=== PATIENT | male | born 1960 | race Caucasian/White ===

== ENCOUNTER 2019-08-02 12:50 | Inpatient (IN) ==
[2019-08-02] MEDS ORDERED: 0.9 % Sodium Chloride 1,000 ML ONE (13:24)
[2019-08-02] MEDS: 0.9 % Sodium Chloride 1,000 ML IVC ONE ×2 (13:38→14:03)
[2019-08-02] MEDS ORDERED: DilTIAZem 50 MG in 0.9 % Sodium Chloride 40 ML IVC SCH (13:45)
[2019-08-02] MEDS ORDERED: 0.9 % Sodium Chloride 1,000 ML IVC ONE ×2 (14:00→14:57)
[2019-08-02 14:18] LABS: INR 1.2; Prothrombin Time 13.1 Seconds (9.4-12.1)
[2019-08-02 14:21] LABS: Basophils # 0.1 K/mcL (0.0-0.2); Basophils % 0.2 %; Eosinophils % 0.1 %; Hemoglobin 16.5 g/dL (12.9-16.9); Lymphocytes # 0.8 K/mcL (0.6-4.6); Lymphocytes % 4.2 %; Mean Corpuscular HGB Conc 35.1 g/dL (31.6-35.5); Mean Corpuscular Hemoglobin 31.7 pg (28.0-33.3); Mean Corpuscular Volume 90.2 fL (83.0-100.0); Mean Platelet Volume 9.9 fL (9.4-12.4); Monocytes # 2.4 K/mcL (0.0-1.3); Monocytes % 11.8 %; Neutrophils # 16.6 K/mcL (1.6-8.9); Platelet Count 322 K/mcL (140-400); Red Blood Count 5.21 M/mcL (4.19-5.50); Segmented Neutrophils % 82.7 %; White Blood Count 20.1 K/mcL (4.3-11.1)
[2019-08-02 14:24] LABS: Bilirubin,Urine Negative (Negative); Blood,Urine Moderate (Negative); Clarity,Urine Cloudy (Clear); Color,Urine Yellow (Yellow); Glucose,Urine (UA) Normal (Normal); Ketones,Urine Negative (Negative); Leukocyte Esterase,Urine Small (Negative); Nitrite,Urine Negative (Negative); Protein,Urine 100 mg/dL (Neg-Trace); Specific Gravity,Urine 1.023 (1.010-1.025); Urobilinogen,Urine Normal (Normal)
[2019-08-02 14:26] LABS: Bacteria,Urine Few per hpf (None-Few); RBC,Urine 0-3 per hpf (0-3); Squamous Epithelial Cell,Urine Many per lpf (None-Few); WBC,Urine 15-30 per hpf (0-3)
[2019-08-02 14:34] LABS: BUN/Creatinine Ratio 15 (6-26); Blood Urea Nitrogen 19 mg/dL (6-20); Carbon Dioxide 18 mEq/L (23-29); Chloride 104 mEq/L (98-107); Glucose 121 mg/dL (70-105); Osmolality,Calculated 278 (280-300); Potassium 3.6 mEq/L (3.5-5.1); Sodium 132 mEq/L (136-145); eGFR For African Americans > 60 (> 60); eGFR For Non-African Americans 59 (> 60)
[2019-08-02 14:35] LABS: Troponin I < 0.03 ng/mL (< 0.04)
[2019-08-02 14:38] LABS: Hyaline Casts,Urine None Seen per lpf (None-Few)
[2019-08-02] MEDS ORDERED: cefTRIAXone 1,000 MG in Water for inj. (sterile) 10 ML IVP ONE (14:40)
[2019-08-02] MEDS ORDERED: *HR* FentaNYL (PF) 100 MCG/2 ML VIAL IVP ONE (14:40)
[2019-08-02] MEDS ORDERED: Azithromycin 500 MG in 0.9 % Sodium Chloride 250 ML IVPB ONE (14:41)
[2019-08-02 14:48] LABS: Thyroid Stimulating Hormone 0.551 mcIU/mL (0.340-5.600)
[2019-08-02] MEDS ORDERED: Ondansetron 4 MG/2 ML VIAL IVP PRN (15:52)
[2019-08-02] MEDS ORDERED: Naloxone 0.4 MG/ML INJ IVP PRN (15:52)
[2019-08-02] MEDS ORDERED: Ketorolac 30 MG/ML VIAL IVP ONE (15:53)
[2019-08-02] MEDS: 0.9 % Sodium Chloride 1,000 ML IVC SCH (16:49)
[2019-08-02] MEDS: DilTIAZem 50 MG in 0.9 % Sodium Chloride 40 ML IVC SCH ×2 (17:49→20:11)
[2019-08-02] MEDS: *HR* Heparin 5,000 UNIT/ML VIAL SQ SCH (18:49)
[2019-08-02 19:20] LABS: Adenovirus Not Detected (Not Detect); Coronavirus 229E Not Detected (Not Detect); Coronavirus HKU1 Not Detected (Not Detect); Coronavirus NL63 Not Detected (Not Detect); Coronavirus OC43 Not Detected (Not Detect); Human Metapneumovirus Not Detected (Not Detect); Human Rhinovirus/Enterovirus Not Detected (Not Detect)
[2019-08-02 19:21] LABS: Bordetella Pertussis Not Detected (Not Detect); Chlamydophila pneumoniae Not Detected (Not Detect); Influenza A Subtype 2009 H1 Not Detected (Not Detect); Influenza B Not Detected (Not Detect); Mycoplasma pneumoniae Not Detected (Not Detect); Parainfluenza Virus 1 Not Detected (Not Detect); Parainfluenza Virus 2 Not Detected (Not Detect); Parainfluenza Virus 3 Not Detected (Not Detect); Parainfluenza Virus 4 Not Detected (Not Detect); Respiratory Syncytial Virus Not Detected (Not Detect)
[2019-08-02] MEDS: Nicotine 7 MG PATCH.TD24 TD SCH (20:10)
[2019-08-02] MEDS: Acetaminophen 325 MG TABLET PO PRN (20:11)
[2019-08-02] MEDS: Benzonatate 100 MG CAPSULE PO PRN (20:11)
[2019-08-03] MEDS: 0.9 % Sodium Chloride 1,000 ML IVC SCH ×3 (00:28→19:44)
[2019-08-03] MEDS: Acetaminophen 325 MG TABLET PO PRN (01:29)
[2019-08-03] MEDS: Ketorolac 15 MG/ML VIAL IVP PRN ×4 (01:31→21:50)
[2019-08-03] MEDS: DilTIAZem 50 MG in 0.9 % Sodium Chloride 40 ML IVC SCH (03:08)
[2019-08-03] MEDS: *HR* Heparin 5,000 UNIT/ML VIAL SQ SCH ×2 (04:12→17:53)
[2019-08-03 05:44] LABS: Basophils # 0.1 K/mcL (0.0-0.2); Basophils % 0.3 %; Eosinophils # 0.1 K/mcL (0.0-0.6); Eosinophils % 0.5 %; Hematocrit 39.4 % (37.5-50.1); Immature Granulocytes % 0.7 % (0-4); Lymphocytes # 3.3 K/mcL (0.6-4.6); Lymphocytes % 16.8 %; Mean Corpuscular HGB Conc 34.3 g/dL (31.6-35.5); Mean Corpuscular Hemoglobin 31.6 pg (28.0-33.3); Mean Corpuscular Volume 92.3 fL (83.0-100.0); Mean Platelet Volume 10.8 fL (9.4-12.4); Monocytes # 2.6 K/mcL (0.0-1.3); Monocytes % 13.3 %; Neutrophils # 13.4 K/mcL (1.6-8.9); Platelet Count 262 K/mcL (140-400); Red Blood Count 4.27 M/mcL (4.19-5.50); Red Cell Distribution Width 13.1 % (11.5-14.5); Segmented Neutrophils % 68.4 %; White Blood Count 19.5 K/mcL (4.3-11.1)
[2019-08-03 05:45] LABS: Hemoglobin 13.5 g/dL (12.9-16.9)
[2019-08-03 06:03] LABS: BUN/Creatinine Ratio 23 (6-26); Blood Urea Nitrogen 18 mg/dL (6-20); Calcium 7.2 mg/dL (8.6-10.3); Carbon Dioxide 19 mEq/L (23-29); Chloride 110 mEq/L (98-107); Glucose 110 mg/dL (70-105); Osmolality,Calculated 289 (280-300); Potassium 3.3 mEq/L (3.5-5.1); Sodium 138 mEq/L (136-145); eGFR For African Americans > 60 (> 60); eGFR For Non-African Americans > 60 (> 60)
[2019-08-03] MEDS ORDERED: Potassium Chloride Elixir 20 MEQ/15 ML UDC PO ONE (07:18)
[2019-08-03] MEDS: cefTRIAXone 2,000 MG in Water for inj. (sterile) 20 ML IVP SCH (08:57)
[2019-08-03] MEDS: Aspirin 81 MG TAB.CHEW PO SCH (09:00)
[2019-08-03] MEDS ORDERED: DilTIAZem 50 MG in 0.9 % Sodium Chloride 40 ML IVC SCH (09:06)
[2019-08-03] MEDS: Albuterol 2.5 MG/3 ML NEBULIZER IH SCH ×2 (15:36→21:32)
[2019-08-03] MEDS ORDERED: Azithromycin 500 MG in 0.9 % Sodium Chloride 250 ML IVPB SCH (16:00)
[2019-08-03] MEDS ORDERED: Perflutren Lipid Microsphere 1.3 ML in 0.9 % Sodium Chloride 8.7 ML IVP ONE (16:52)
[2019-08-03] MEDS: Nicotine 7 MG PATCH.TD24 TD SCH (21:16)
[2019-08-04] MEDS: 0.9 % Sodium Chloride 1,000 ML IVC SCH ×2 (02:00→04:56)
[2019-08-04 03:05] LABS: Hematocrit 40.9 % (37.5-50.1); Hemoglobin 13.6 g/dL (12.9-16.9); Mean Corpuscular HGB Conc 33.3 g/dL (31.6-35.5); Mean Corpuscular Hemoglobin 31.6 pg (28.0-33.3); Mean Corpuscular Volume 95.1 fL (83.0-100.0); Mean Platelet Volume 10.6 fL (9.4-12.4); Platelet Count 263 K/mcL (140-400); Red Cell Distribution Width 13.1 % (11.5-14.5); White Blood Count 11.2 K/mcL (4.3-11.1)
[2019-08-04 03:17] LABS: BUN/Creatinine Ratio 19 (6-26); Blood Urea Nitrogen 14 mg/dL (6-20); Calcium 8.5 mg/dL (8.6-10.3); Carbon Dioxide 20 mEq/L (23-29); Chloride 109 mEq/L (98-107); Glucose 92 mg/dL (70-105); Osmolality,Calculated 280 (280-300); Potassium 3.5 mEq/L (3.5-5.1); Sodium 135 mEq/L (136-145); eGFR For African Americans > 60 (> 60); eGFR For Non-African Americans > 60 (> 60)
[2019-08-04] MEDS: Albuterol 2.5 MG/3 ML NEBULIZER IH SCH ×4 (03:49→21:41)
[2019-08-04] MEDS: Ketorolac 15 MG/ML VIAL IVP PRN ×3 (04:58→18:56)
[2019-08-04] MEDS: *HR* Heparin 5,000 UNIT/ML VIAL SQ SCH ×2 (04:59→18:56)
[2019-08-04] MEDS: cefTRIAXone 2,000 MG in Water for inj. (sterile) 20 ML IVP SCH (08:06)
[2019-08-04] MEDS: Aspirin 81 MG TAB.CHEW PO SCH (08:07)
[2019-08-04] MEDS ORDERED: Azithromycin 500 MG in 0.9 % Sodium Chloride 250 ML IVPB ONE (13:07)
[2019-08-04] MEDS: GuaiFENesin/Codeine Oral Soln 5 ML UDC PO PRN (13:50)
[2019-08-04] MEDS: Nicotine 7 MG PATCH.TD24 TD SCH (13:51)
[2019-08-04] MEDS: Benzonatate 100 MG CAPSULE PO PRN (13:53)
[2019-08-05] MEDS: Albuterol 2.5 MG/3 ML NEBULIZER IH SCH ×3 (03:06→15:24)
[2019-08-05 05:10] LABS: Hematocrit 41.9 % (37.5-50.1); Mean Corpuscular HGB Conc 33.4 g/dL (31.6-35.5); Mean Corpuscular Hemoglobin 31.5 pg (28.0-33.3); Mean Corpuscular Volume 94.4 fL (83.0-100.0); Mean Platelet Volume 10.3 fL (9.4-12.4); Platelet Count 270 K/mcL (140-400); Red Blood Count 4.44 M/mcL (4.19-5.50); Red Cell Distribution Width 12.9 % (11.5-14.5)
[2019-08-05 05:19] LABS: BUN/Creatinine Ratio 14 (6-26); Blood Urea Nitrogen 10 mg/dL (6-20); Calcium 8.6 mg/dL (8.6-10.3); Carbon Dioxide 22 mEq/L (23-29); Chloride 104 mEq/L (98-107); Glucose 99 mg/dL (70-105); Osmolality,Calculated 283 (280-300); Potassium 3.6 mEq/L (3.5-5.1); Sodium 137 mEq/L (136-145); eGFR For African Americans > 60 (> 60); eGFR For Non-African Americans > 60 (> 60)
[2019-08-05] MEDS: Ketorolac 15 MG/ML VIAL IVP PRN ×2 (05:53→15:12)
[2019-08-05] MEDS: *HR* Heparin 5,000 UNIT/ML VIAL SQ SCH (05:53)
[2019-08-05] MEDS: Nicotine 7 MG PATCH.TD24 TD SCH (08:32)
[2019-08-05] MEDS: GuaiFENesin/Codeine Oral Soln 5 ML UDC PO PRN ×2 (08:32→15:11)
[2019-08-05] MEDS: Aspirin 81 MG TAB.CHEW PO SCH (08:32)
[2019-08-05] MEDS ORDERED: Azithromycin 250 MG TABLET PO SCH (09:00)
[2019-08-05] MEDS ORDERED: cefTRIAXone 2,000 MG in 0.9 % Sodium Chloride Mini Bag 100 ML IVPB SCH (09:00)
[2019-08-05 15:35] VITALS: BP 149/85
== END 2019-08-05 16:59 | disposition home or self-care (01) | DRG 720 ==
LOC: EMEROOARM 12:50 → 2NNU 16:07 → SUATTDRO 16:07 → 2NNU 18:00 → 2ANU 08-04 13:28
PROVIDERS: ADMIT Internal Medicine; ATTEND Pharmacist

== ENCOUNTER 2020-02-17 00:36 | Inpatient (IN) ==
[2020-02-17] MEDS ORDERED: Dexamethasone 4 MG/ML VIAL IVP ONE (01:04)
[2020-02-17] MEDS ORDERED: Ipratropium/Albuterol Neb 3 ML IH ONE (01:04)
[2020-02-17] MEDS ORDERED: 0.9 % Sodium Chloride 1,000 ML IVC ONE (01:05)
[2020-02-17] MEDS ORDERED: Isovue-370 500 ML BOTTLE IVP ONE (01:05)
[2020-02-17] MEDS ORDERED: Azithromycin 500 MG in 0.9 % Sodium Chloride 250 ML IVPB ONE (01:14)
[2020-02-17] MEDS ORDERED: cefTRIAXone 1,000 MG in Water for inj. (sterile) 10 ML IVP ONE (01:14)
[2020-02-17] MEDS ORDERED: Cefepime HCl 1,000 MG in Water for inj. (sterile) 10 ML IVP ONE (01:15)
[2020-02-17 01:22] LABS: Basophils # 0.1 K/mcL (0.0-0.2); Basophils % 0.7 %; Eosinophils # 0.2 K/mcL (0.0-0.6); Eosinophils % 1.7 %; Hematocrit 42.9 % (37.5-50.1); Hemoglobin 13.7 g/dL (12.9-16.9); Immature Granulocytes % 0.2 % (0-4); Lymphocytes # 3.1 K/mcL (0.6-4.6); Lymphocytes % 32.3 %; Mean Corpuscular HGB Conc 31.9 g/dL (31.6-35.5); Mean Corpuscular Hemoglobin 31.3 pg (28.0-33.3); Mean Corpuscular Volume 97.9 fL (83.0-100.0); Mean Platelet Volume 10.8 fL (9.4-12.4); Monocytes # 0.8 K/mcL (0.0-1.3); Monocytes % 8.6 %; Neutrophils # 5.4 K/mcL (1.6-8.9); Platelet Count 246 K/mcL (140-400); Red Blood Count 4.38 M/mcL (4.19-5.50); Red Cell Distribution Width 14.3 % (11.5-14.5); Segmented Neutrophils % 56.5 %; White Blood Count 9.5 K/mcL (4.3-11.1)
[2020-02-17] MEDS ORDERED: *HR* FentaNYL (PF) 100 MCG/2 ML VIAL IVP ONE (01:24)
[2020-02-17 01:27] LABS: VBG HCO3 23 mEq/L (21-27); VBG PCO2 43 mmHg (41-51); VBG PH 7.35 pH Units (7.32-7.42); VBG PO2 78 mmHg (25-50)
[2020-02-17 01:44] LABS: BUN/Creatinine Ratio 26 (6-26); Blood Urea Nitrogen 24 mg/dL (6-20); Calcium 9.1 mg/dL (8.6-10.3); Carbon Dioxide 21 mEq/L (23-29); Chloride 106 mEq/L (98-107); Glucose 103 mg/dL (70-105); Osmolality,Calculated 286 (280-300); Potassium 3.8 mEq/L (3.5-5.1); Sodium 136 mEq/L (136-145); eGFR For African Americans > 60 (> 60); eGFR For Non-African Americans > 60 (> 60)
[2020-02-17 01:45] LABS: Troponin I < 0.03 ng/mL (< 0.04)
[2020-02-17 02:12] LABS: Adenovirus Not Detected (Not Detect); Coronavirus 229E Not Detected (Not Detect); Coronavirus HKU1 Not Detected (Not Detect); Coronavirus NL63 Not Detected (Not Detect); Coronavirus OC43 Not Detected (Not Detect)
[2020-02-17 02:13] LABS: Bordetella Pertussis Not Detected (Not Detect); Chlamydophila pneumoniae Not Detected (Not Detect); Human Metapneumovirus Not Detected (Not Detect); Human Rhinovirus/Enterovirus Not Detected (Not Detect); Influenza A Subtype 2009 H1 Not Detected (Not Detect); Influenza B Not Detected (Not Detect); Mycoplasma pneumoniae Not Detected (Not Detect); Parainfluenza Virus 1 Not Detected (Not Detect); Parainfluenza Virus 2 Not Detected (Not Detect); Parainfluenza Virus 3 Not Detected (Not Detect); Parainfluenza Virus 4 Not Detected (Not Detect); Respiratory Syncytial Virus Not Detected (Not Detect)
[2020-02-17] MEDS: DilTIAZem 50 MG/50 ML IV.SOLN IVC SCH ×2 (02:24→08:50)
[2020-02-17] MEDS: *HR* Enoxaparin 150 MG/ML SYRINGE SQ STA ×2 (02:27→04:04)
[2020-02-17] MEDS ORDERED: *HR* Heparin 5,000 UNIT/ML VIAL IVP PRN ×2 (02:43)
[2020-02-17] MEDS ORDERED: *HR* Heparin 5,000 UNIT/ML VIAL IVP ONE (02:43)
[2020-02-17] MEDS: Heparin 25,000UNIT/250ML 1/2NS 25,000 UNIT/250 ML IV.SOLN IVC SCH ×2 (03:26→17:06)
[2020-02-17 04:06] LABS: Hematocrit 43.5 % (37.5-50.1); Hemoglobin 13.9 g/dL (12.9-16.9); Mean Corpuscular Hemoglobin 32.3 pg (28.0-33.3); Mean Corpuscular Volume 100.9 fL (83.0-100.0); Mean Platelet Volume 10.9 fL (9.4-12.4); Platelet Count 232 K/mcL (140-400); Red Blood Count 4.31 M/mcL (4.19-5.50); Red Cell Distribution Width 14.4 % (11.5-14.5); White Blood Count 7.8 K/mcL (4.3-11.1)
[2020-02-17] MEDS ORDERED: Perflutren Lipid Microsphere 1.3 ML in 0.9 % Sodium Chloride 8.7 ML IVP PRN (04:09)
[2020-02-17 04:18] LABS: INR 1.1; Prothrombin Time 12.6 Seconds (9.4-12.1)
[2020-02-17] MEDS ORDERED: *HR* Promethazine 25 MG/ML VIAL IVP PRN (04:20)
[2020-02-17] MEDS ORDERED: Naloxone 0.4 MG/ML INJ IVP PRN (04:20)
[2020-02-17 04:21] LABS: Heparin anti-factor XA UFH < 0.04 IU/mL (0.30-0.70)
[2020-02-17] MEDS ORDERED: Furosemide 40 MG/4 ML VIAL IVP ONE (05:13)
[2020-02-17 07:03] LABS: Chol/HDL Ratio 6.4 (0-4.9); Magnesium 2.3 mg/dL (1.6-2.6); Phosphorous 3.4 mg/dL (2.7-4.5)
[2020-02-17 07:06] LABS: Alanine Aminotransferase 58 Units/L (7-52); Albumin 4.1 g/dL (3.5-5.7); Albumin/Globulin Ratio 1.1 (1.1-2.2); Alkaline Phosphatase 91 Units/L (34-104); Aspartate Amino Transferase 46 Units/L (13-39); Bilirubin,Direct 0.1 mg/dL (0.0-0.2); Bilirubin,Indirect 0.4 mg/dL (0.0-1.0); Bilirubin,Total 0.5 mg/dL (0.3-1.0); Globulin 3.6 g/dL (2.4-3.5); Total Protein 7.7 g/dL (6.4-8.9); Troponin I < 0.03 ng/mL (< 0.04)
[2020-02-17 07:18] LABS: Thyroid Stimulating Hormone 1.134 mcIU/mL (0.340-5.600)
[2020-02-17] MEDS: Furosemide 40 MG/4 ML VIAL IVP SCH (20:26)
[2020-02-18] MEDS: DilTIAZem 50 MG/50 ML IV.SOLN IVC SCH (04:14)
[2020-02-18] MEDS: Azithromycin 500 MG in 0.9 % Sodium Chloride 250 ML IVPB SCH (06:13)
[2020-02-18 06:14] LABS: Basophils % 0.1 %; Hematocrit 42.3 % (37.5-50.1); Hemoglobin 13.4 g/dL (12.9-16.9); Immature Granulocytes % 0.6 % (0-4); Lymphocytes # 1.7 K/mcL (0.6-4.6); Lymphocytes % 16.7 %; Mean Corpuscular HGB Conc 31.7 g/dL (31.6-35.5); Mean Corpuscular Hemoglobin 31.2 pg (28.0-33.3); Mean Corpuscular Volume 98.4 fL (83.0-100.0); Monocytes # 0.8 K/mcL (0.0-1.3); Monocytes % 8.2 %; Neutrophils # 7.7 K/mcL (1.6-8.9); Platelet Count 249 K/mcL (140-400); Red Cell Distribution Width 14.6 % (11.5-14.5); Segmented Neutrophils % 74.4 %; White Blood Count 10.3 K/mcL (4.3-11.1)
[2020-02-18 06:31] LABS: BUN/Creatinine Ratio 29 (6-26); Blood Urea Nitrogen 28 mg/dL (6-20); Calcium 9.1 mg/dL (8.6-10.3); Carbon Dioxide 23 mEq/L (23-29); Chloride 106 mEq/L (98-107); Glucose 117 mg/dL (70-105); Osmolality,Calculated 293 (280-300); Sodium 138 mEq/L (136-145); eGFR For African Americans > 60 (> 60); eGFR For Non-African Americans > 60 (> 60)
[2020-02-18] MEDS: Heparin 25,000UNIT/250ML 1/2NS 25,000 UNIT/250 ML IV.SOLN IVC SCH ×2 (07:30→20:33)
[2020-02-18] MEDS: Furosemide 40 MG/4 ML VIAL IVP SCH ×2 (07:50→21:02)
[2020-02-18] MEDS: Tiotropium 18 MCG inhalation IH SCH (07:50)
[2020-02-18] MEDS: Aspirin 81 MG TAB.CHEW PO SCH (07:50)
[2020-02-18] MEDS ORDERED: Furosemide 20 MG/2 ML VIAL IVP ONE (10:49)
[2020-02-18] MEDS: Metoprolol XL (24 HR) Succ 50 MG TAB.ER.24H PO SCH (21:03)
[2020-02-19] MEDS: Azithromycin 500 MG in 0.9 % Sodium Chloride 250 ML IVPB SCH (04:36)
[2020-02-19 05:26] LABS: Hematocrit 43.5 % (37.5-50.1); Hemoglobin 13.6 g/dL (12.9-16.9); Mean Corpuscular HGB Conc 31.3 g/dL (31.6-35.5); Mean Corpuscular Hemoglobin 31.4 pg (28.0-33.3); Mean Corpuscular Volume 100.5 fL (83.0-100.0); Mean Platelet Volume 12.4 fL (9.4-12.4); Platelet Count 243 K/mcL (140-400); Red Blood Count 4.33 M/mcL (4.19-5.50); Red Cell Distribution Width 14.3 % (11.5-14.5); White Blood Count 9.9 K/mcL (4.3-11.1)
[2020-02-19 05:46] LABS: Alanine Aminotransferase 54 Units/L (7-52); Albumin 3.7 g/dL (3.5-5.7); Albumin/Globulin Ratio 1.2 (1.1-2.2); Alkaline Phosphatase 85 Units/L (34-104); Aspartate Amino Transferase 35 Units/L (13-39); BUN/Creatinine Ratio 28 (6-26); Bilirubin,Total 0.4 mg/dL (0.3-1.0); Blood Urea Nitrogen 31 mg/dL (6-20); Calcium 8.7 mg/dL (8.6-10.3); Carbon Dioxide 26 mEq/L (23-29); Chloride 104 mEq/L (98-107); Globulin 3.1 g/dL (2.4-3.5); Glucose 95 mg/dL (70-105); Osmolality,Calculated 292 (280-300); Potassium 3.4 mEq/L (3.5-5.1); Sodium 138 mEq/L (136-145); Total Protein 6.8 g/dL (6.4-8.9); eGFR For African Americans > 60 (> 60); eGFR For Non-African Americans > 60 (> 60)
[2020-02-19] MEDS: Tiotropium 18 MCG inhalation IH SCH (07:48)
[2020-02-19] MEDS: Furosemide 40 MG/4 ML VIAL IVP SCH ×3 (08:30→21:20)
[2020-02-19] MEDS: Metoprolol XL (24 HR) Succ 50 MG TAB.ER.24H PO SCH ×2 (08:32→21:21)
[2020-02-19] MEDS: Aspirin 81 MG TAB.CHEW PO SCH (08:32)
[2020-02-19] MEDS: Heparin 25,000UNIT/250ML 1/2NS 25,000 UNIT/250 ML IV.SOLN IVC SCH (09:38)
[2020-02-20] MEDS: Heparin 25,000UNIT/250ML 1/2NS 25,000 UNIT/250 ML IV.SOLN IVC SCH ×2 (00:21→15:00)
[2020-02-20 05:50] LABS: Hematocrit 42.6 % (37.5-50.1); Hemoglobin 13.7 g/dL (12.9-16.9); Mean Corpuscular HGB Conc 32.2 g/dL (31.6-35.5); Mean Corpuscular Hemoglobin 31.6 pg (28.0-33.3); Mean Corpuscular Volume 98.2 fL (83.0-100.0); Mean Platelet Volume 10.8 fL (9.4-12.4); Platelet Count 220 K/mcL (140-400); Red Blood Count 4.34 M/mcL (4.19-5.50); Red Cell Distribution Width 13.8 % (11.5-14.5); White Blood Count 8.7 K/mcL (4.3-11.1)
[2020-02-20] MEDS: Azithromycin 500 MG in 0.9 % Sodium Chloride 250 ML IVPB SCH (05:56)
[2020-02-20 06:17] LABS: Alanine Aminotransferase 54 Units/L (7-52); Albumin 3.8 g/dL (3.5-5.7); Albumin/Globulin Ratio 1.2 (1.1-2.2); Alkaline Phosphatase 75 Units/L (34-104); Aspartate Amino Transferase 35 Units/L (13-39); BUN/Creatinine Ratio 25 (6-26); Bilirubin,Total 0.6 mg/dL (0.3-1.0); Blood Urea Nitrogen 27 mg/dL (6-20); Calcium 8.9 mg/dL (8.6-10.3); Carbon Dioxide 28 mEq/L (23-29); Chloride 101 mEq/L (98-107); Globulin 3.2 g/dL (2.4-3.5); Glucose 107 mg/dL (70-105); Osmolality,Calculated 290 (280-300); Potassium 3.4 mEq/L (3.5-5.1); Sodium 137 mEq/L (136-145); eGFR For African Americans > 60 (> 60); eGFR For Non-African Americans > 60 (> 60)
[2020-02-20] MEDS ORDERED: Potassium Chloride 40 MEQ, Lidocaine 1% 2 ML in 0.9 % Sodium Chloride 500 ML IVPB ONE (07:58)
[2020-02-20] MEDS: Tiotropium 18 MCG inhalation IH SCH (08:00)
[2020-02-20 08:22] LABS: Magnesium 2.2 mg/dL (1.6-2.6)
[2020-02-20] MEDS: Aspirin 81 MG TAB.CHEW PO SCH (09:01)
[2020-02-20] MEDS: Metoprolol XL (24 HR) Succ 25 MG TAB.ER.24H PO SCH ×2 (09:27→20:17)
[2020-02-20] MEDS: Furosemide 40 MG/4 ML VIAL IVP SCH ×2 (09:32→20:14)
[2020-02-21 04:16] LABS: Hematocrit 45.1 % (37.5-50.1); Hemoglobin 14.2 g/dL (12.9-16.9); Mean Corpuscular HGB Conc 31.5 g/dL (31.6-35.5); Mean Corpuscular Hemoglobin 30.9 pg (28.0-33.3); Mean Platelet Volume 11.2 fL (9.4-12.4); Platelet Count 223 K/mcL (140-400); White Blood Count 8.1 K/mcL (4.3-11.1)
[2020-02-21 04:36] LABS: Alanine Aminotransferase 54 Units/L (7-52); Albumin 3.8 g/dL (3.5-5.7); Albumin/Globulin Ratio 1.2 (1.1-2.2); Alkaline Phosphatase 83 Units/L (34-104); Aspartate Amino Transferase 31 Units/L (13-39); BUN/Creatinine Ratio 22 (6-26); Bilirubin,Total 0.6 mg/dL (0.3-1.0); Blood Urea Nitrogen 21 mg/dL (6-20); Calcium 9.1 mg/dL (8.6-10.3); Carbon Dioxide 27 mEq/L (23-29); Chloride 103 mEq/L (98-107); Globulin 3.1 g/dL (2.4-3.5); Glucose 105 mg/dL (70-105); Osmolality,Calculated 289 (280-300); Potassium 3.7 mEq/L (3.5-5.1); Sodium 138 mEq/L (136-145); Total Protein 6.9 g/dL (6.4-8.9); eGFR For African Americans > 60 (> 60); eGFR For Non-African Americans > 60 (> 60)
[2020-02-21] MEDS: Azithromycin 500 MG in 0.9 % Sodium Chloride 250 ML IVPB SCH (05:12)
[2020-02-21] MEDS: Heparin 25,000UNIT/250ML 1/2NS 25,000 UNIT/250 ML IV.SOLN IVC SCH ×2 (05:13→19:18)
[2020-02-21] MEDS: Metoprolol XL (24 HR) Succ 25 MG TAB.ER.24H PO SCH ×2 (08:48→19:36)
[2020-02-21] MEDS: Aspirin 81 MG TAB.CHEW PO SCH (08:48)
[2020-02-21] MEDS: Spironolactone 25 MG TABLET PO SCH (08:48)
[2020-02-21] MEDS: Furosemide 40 MG/4 ML VIAL IVP SCH ×2 (08:49→19:36)
[2020-02-21] MEDS: Ipratropium/Albuterol Neb 3 ML IH SCH ×4 (09:29→20:11)
[2020-02-21] MEDS: Acetaminophen 325 MG TABLET PO PRN (10:25)
[2020-02-22] MEDS: Ipratropium/Albuterol Neb 3 ML IH SCH ×7 (00:10→23:26)
[2020-02-22] MEDS: Heparin 25,000UNIT/250ML 1/2NS 25,000 UNIT/250 ML IV.SOLN IVC SCH ×3 (03:12→23:35)
[2020-02-22 05:08] LABS: Basophils # 0.1 K/mcL (0.0-0.2); Basophils % 0.8 %; Eosinophils # 0.4 K/mcL (0.0-0.6); Eosinophils % 3.7 %; Hematocrit 46.8 % (37.5-50.1); Hemoglobin 15.3 g/dL (12.9-16.9); Immature Granulocytes % 0.9 % (0-4); Lymphocytes # 3.6 K/mcL (0.6-4.6); Lymphocytes % 34.7 %; Mean Corpuscular HGB Conc 32.7 g/dL (31.6-35.5); Mean Corpuscular Hemoglobin 31.5 pg (28.0-33.3); Mean Corpuscular Volume 96.3 fL (83.0-100.0); Mean Platelet Volume 11.4 fL (9.4-12.4); Monocytes # 1.2 K/mcL (0.0-1.3); Monocytes % 11.8 %; Platelet Count 241 K/mcL (140-400); Red Blood Count 4.86 M/mcL (4.19-5.50); Red Cell Distribution Width 13.8 % (11.5-14.5); Segmented Neutrophils % 48.1 %; White Blood Count 10.4 K/mcL (4.3-11.1)
[2020-02-22 05:22] LABS: BUN/Creatinine Ratio 18 (6-26); Blood Urea Nitrogen 20 mg/dL (6-20); Calcium 9.6 mg/dL (8.6-10.3); Carbon Dioxide 27 mEq/L (23-29); Chloride 102 mEq/L (98-107); Glucose 83 mg/dL (70-105); Osmolality,Calculated 286 (280-300); Sodium 137 mEq/L (136-145); eGFR For African Americans > 60 (> 60); eGFR For Non-African Americans > 60 (> 60)
[2020-02-22] MEDS: Azithromycin 500 MG in 0.9 % Sodium Chloride 250 ML IVPB SCH (05:44)
[2020-02-22] MEDS: Furosemide 40 MG/4 ML VIAL IVP SCH ×2 (07:20→21:17)
[2020-02-22] MEDS: Metoprolol XL (24 HR) Succ 25 MG TAB.ER.24H PO SCH ×2 (07:21→21:17)
[2020-02-22] MEDS: Aspirin 81 MG TAB.CHEW PO SCH (08:43)
[2020-02-22] MEDS: Spironolactone 25 MG TABLET PO SCH (08:44)
[2020-02-22] MEDS ORDERED: *HR* LORazepam 2 MG/ML VIAL IVP ONE (12:12)
[2020-02-22] MEDS ORDERED: *HR* FentaNYL (PF) 100 MCG/2 ML VIAL ONE (13:54)
[2020-02-22] MEDS ORDERED: *HR* Midazolam HCl 2 MG/2 ML VIAL ONE (13:54)
[2020-02-22] MEDS ORDERED: Heparin 1,000 UNITS/500 mL 500 ML ONE (13:55)
[2020-02-22] MEDS ORDERED: *HR* Heparin 10,000 UNIT/10 ML VIAL ONE (13:55)
[2020-02-22] MEDS ORDERED: 0.9 % Sodium Chloride 2,000 ML ONE (13:55)
[2020-02-22] MEDS ORDERED: Nitroglycerin 1,000 MCG/10 ML VIAL IV ONE (13:55)
[2020-02-22] MEDS ORDERED: ISOVUE-370 200 ML INFUS..BTL ONE (13:55)
[2020-02-22] MEDS: *HR* Digoxin 0.125 MG TABLET PO SCH (14:44)
[2020-02-22] MEDS: predniSONE 20 MG TABLET PO SCH (14:44)
[2020-02-22] MEDS ORDERED: *HR* Heparin 5,000 UNIT/ML VIAL SQ SCH (18:00)
[2020-02-22] MEDS ORDERED: *HR* Heparin 5,000 UNIT/ML VIAL IVP PRN ×2 (21:59→22:45)
[2020-02-22] MEDS ORDERED: *HR* Heparin 5,000 UNIT/ML VIAL IVP ONE (22:45)
[2020-02-23 01:28] LABS: Hematocrit 48.7 % (37.5-50.1); Mean Corpuscular HGB Conc 32.9 g/dL (31.6-35.5); Mean Corpuscular Hemoglobin 32.3 pg (28.0-33.3); Mean Corpuscular Volume 98.4 fL (83.0-100.0); Mean Platelet Volume 11.3 fL (9.4-12.4); Platelet Count 228 K/mcL (140-400); Red Blood Count 4.95 M/mcL (4.19-5.50); Red Cell Distribution Width 13.7 % (11.5-14.5); White Blood Count 8.6 K/mcL (4.3-11.1)
[2020-02-23 01:33] LABS: Prothrombin Time 11.7 Seconds (9.4-12.1)
[2020-02-23 01:34] LABS: Heparin anti-factor XA UFH < 0.04 IU/mL (0.30-0.70)
[2020-02-23] MEDS: Ipratropium/Albuterol Neb 3 ML IH SCH ×5 (03:07→20:10)
[2020-02-23] MEDS: *HR* Heparin 5,000 UNIT/ML VIAL IVP PRN ×2 (06:53→21:14)
[2020-02-23] MEDS: Aspirin 81 MG TAB.CHEW PO SCH (08:04)
[2020-02-23] MEDS: *HR* Digoxin 0.125 MG TABLET PO SCH (08:05)
[2020-02-23] MEDS: Metoprolol XL (24 HR) Succ 25 MG TAB.ER.24H PO SCH ×2 (08:05→21:13)
[2020-02-23] MEDS: Spironolactone 25 MG TABLET PO SCH (08:05)
[2020-02-23] MEDS: predniSONE 20 MG TABLET PO SCH (08:05)
[2020-02-23] MEDS: Furosemide 40 MG/4 ML VIAL IVP SCH ×2 (08:05→21:14)
[2020-02-23 08:45] LABS: BUN/Creatinine Ratio 24 (6-26); Blood Urea Nitrogen 24 mg/dL (6-20); Calcium 10.1 mg/dL (8.6-10.3); Carbon Dioxide 25 mEq/L (23-29); Chloride 102 mEq/L (98-107); Glucose 115 mg/dL (70-105); Osmolality,Calculated 283 (280-300); Potassium 4.3 mEq/L (3.5-5.1); Sodium 134 mEq/L (136-145); eGFR For African Americans > 60 (> 60); eGFR For Non-African Americans > 60 (> 60)
[2020-02-23] MEDS: Heparin 25,000UNIT/250ML 1/2NS 25,000 UNIT/250 ML IV.SOLN IVC SCH (18:40)
[2020-02-24] MEDS: Ipratropium/Albuterol Neb 3 ML IH SCH ×7 (00:14→23:32)
[2020-02-24 04:40] LABS: Hematocrit 49.8 % (37.5-50.1); Hemoglobin 16.1 g/dL (12.9-16.9); Mean Corpuscular HGB Conc 32.3 g/dL (31.6-35.5); Mean Corpuscular Hemoglobin 31.8 pg (28.0-33.3); Mean Corpuscular Volume 98.4 fL (83.0-100.0); Mean Platelet Volume 11.6 fL (9.4-12.4); Platelet Count 262 K/mcL (140-400); Red Blood Count 5.06 M/mcL (4.19-5.50); Red Cell Distribution Width 13.7 % (11.5-14.5); White Blood Count 15.5 K/mcL (4.3-11.1)
[2020-02-24 05:00] LABS: BUN/Creatinine Ratio 29 (6-26); Blood Urea Nitrogen 34 mg/dL (6-20); Calcium 10.2 mg/dL (8.6-10.3); Carbon Dioxide 27 mEq/L (23-29); Chloride 100 mEq/L (98-107); Glucose 100 mg/dL (70-105); Osmolality,Calculated 292 (280-300); Sodium 137 mEq/L (136-145); eGFR For African Americans > 60 (> 60); eGFR For Non-African Americans > 60 (> 60)
[2020-02-24] MEDS ORDERED: *HR* LORazepam 1 MG TABLET PO PRN (07:00)
[2020-02-24] MEDS: predniSONE 20 MG TABLET PO SCH (07:50)
[2020-02-24] MEDS: Metoprolol XL (24 HR) Succ 25 MG TAB.ER.24H PO SCH ×2 (07:51→20:51)
[2020-02-24] MEDS: Spironolactone 25 MG TABLET PO SCH (07:51)
[2020-02-24] MEDS: Aspirin 81 MG TAB.CHEW PO SCH (07:52)
[2020-02-24] MEDS: *HR* Digoxin 0.125 MG TABLET PO SCH (07:52)
[2020-02-24] MEDS: Furosemide 40 MG/4 ML VIAL IVP SCH (07:53)
[2020-02-24] MEDS ORDERED: 0.9 % Sodium Chloride 1,000 ML ONE (10:22)
[2020-02-24] MEDS ORDERED: Nitroglycerin 1,000 MCG/10 ML VIAL IV ONE (10:22)
[2020-02-24] MEDS ORDERED: Heparin 1,000 UNITS/500 mL 500 ML ONE (10:22)
[2020-02-24] MEDS ORDERED: ISOVUE-370 200 ML INFUS..BTL ONE (10:22)
[2020-02-24] MEDS ORDERED: *HR* Heparin 10,000 UNIT/10 ML VIAL ONE (10:22)
[2020-02-24] MEDS ORDERED: *HR* FentaNYL (PF) 100 MCG/2 ML VIAL ONE (10:33)
[2020-02-24] MEDS ORDERED: *HR* Midazolam HCl 2 MG/2 ML VIAL ONE (10:33)
[2020-02-24] MEDS ORDERED: *HR* Amiodarone 200 MG TABLET PO SCH (11:45)
[2020-02-24] MEDS: Apixaban 5 MG TABLET PO SCH ×2 (12:49→20:51)
[2020-02-24] MEDS: *HR* Amiodarone 200 MG TABLET PO SCH ×2 (12:49→20:51)
[2020-02-24] MEDS: Furosemide 40 MG TABLET PO SCH (16:27)
[2020-02-24] MEDS ORDERED: Gabapentin 100 MG CAPSULE PO ONE (18:02)
[2020-02-25] MEDS: Ipratropium/Albuterol Neb 3 ML IH SCH ×3 (03:29→11:03)
[2020-02-25] MEDS: Acetaminophen 325 MG TABLET PO PRN (06:09)
[2020-02-25] MEDS: predniSONE 20 MG TABLET PO SCH (07:43)
[2020-02-25] MEDS: Spironolactone 25 MG TABLET PO SCH (07:43)
[2020-02-25] MEDS: Apixaban 5 MG TABLET PO SCH ×2 (07:43→21:27)
[2020-02-25] MEDS: Aspirin 81 MG TAB.CHEW PO SCH (07:44)
[2020-02-25] MEDS: Furosemide 40 MG TABLET PO SCH ×2 (07:44→17:33)
[2020-02-25] MEDS: Metoprolol XL (24 HR) Succ 25 MG TAB.ER.24H PO SCH ×2 (07:44→21:27)
[2020-02-25] MEDS: *HR* Amiodarone 200 MG TABLET PO SCH ×2 (07:46→21:27)
[2020-02-25 07:47] LABS: Hematocrit 49.1 % (37.5-50.1); Mean Corpuscular HGB Conc 32.6 g/dL (31.6-35.5); Mean Corpuscular Hemoglobin 31.3 pg (28.0-33.3); Mean Corpuscular Volume 95.9 fL (83.0-100.0); Mean Platelet Volume 11.4 fL (9.4-12.4); Platelet Count 283 K/mcL (140-400); Red Blood Count 5.12 M/mcL (4.19-5.50); Red Cell Distribution Width 13.7 % (11.5-14.5); White Blood Count 13.4 K/mcL (4.3-11.1)
[2020-02-25 07:54] LABS: BUN/Creatinine Ratio 30 (6-26); Blood Urea Nitrogen 38 mg/dL (6-20); Carbon Dioxide 29 mEq/L (23-29); Chloride 98 mEq/L (98-107); Glucose 110 mg/dL (70-105); Osmolality,Calculated 292 (280-300); Potassium 3.6 mEq/L (3.5-5.1); Sodium 136 mEq/L (136-145); eGFR For African Americans > 60 (> 60); eGFR For Non-African Americans 59 (> 60)
[2020-02-25] MEDS: *HR* LORazepam 1 MG TABLET PO PRN ×2 (10:48→21:28)
[2020-02-25] MEDS ORDERED: *HR* Amiodarone 200 MG TABLET PO ONE (12:20)
[2020-02-25] MEDS ORDERED: Ipratropium/Albuterol Neb 3 ML IH PRN (14:26)
[2020-02-26 07:46] VITALS: BP 139/88
[2020-02-26] MEDS: Metoprolol XL (24 HR) Succ 25 MG TAB.ER.24H PO SCH (08:02)
[2020-02-26] MEDS: Furosemide 40 MG TABLET PO SCH (08:03)
[2020-02-26] MEDS: Spironolactone 25 MG TABLET PO SCH (08:03)
[2020-02-26] MEDS: *HR* Amiodarone 200 MG TABLET PO SCH (08:03)
[2020-02-26] MEDS: Apixaban 5 MG TABLET PO SCH (08:03)
[2020-02-26] MEDS: predniSONE 20 MG TABLET PO SCH (08:03)
[2020-02-26] MEDS: Aspirin 81 MG TAB.CHEW PO SCH (08:03)
[2020-02-26 09:08] LABS: Hemoglobin 15.6 g/dL (12.9-16.9); Mean Corpuscular HGB Conc 32.5 g/dL (31.6-35.5); Mean Corpuscular Hemoglobin 31.6 pg (28.0-33.3); Mean Corpuscular Volume 97.2 fL (83.0-100.0); Mean Platelet Volume 11.1 fL (9.4-12.4); Platelet Count 288 K/mcL (140-400); Red Blood Count 4.94 M/mcL (4.19-5.50); Red Cell Distribution Width 13.5 % (11.5-14.5); White Blood Count 14.7 K/mcL (4.3-11.1)
[2020-02-26 09:27] LABS: BUN/Creatinine Ratio 28 (6-26); Blood Urea Nitrogen 33 mg/dL (6-20); Calcium 9.6 mg/dL (8.6-10.3); Carbon Dioxide 24 mEq/L (23-29); Chloride 102 mEq/L (98-107); Glucose 119 mg/dL (70-105); Osmolality,Calculated 288 (280-300); Potassium 4.1 mEq/L (3.5-5.1); Sodium 135 mEq/L (136-145); eGFR For African Americans > 60 (> 60); eGFR For Non-African Americans > 60 (> 60)
== END 2020-02-26 08:55 | disposition left against medical advice (07) | DRG 192 ==
LOC: EMEROOARM 00:36 → 2NNU 00:36 → SUATTDRO 03:48 → 2NNU 04:40 → 3ANU 02-19 18:18
PROVIDERS: ADMIT Student in an Organized Health Care Education/Training Program; ATTEND Family Medicine

== ENCOUNTER 2021-11-22 18:14 | Inpatient (IN) ==
[2021-11-22] MEDS ORDERED: Ondansetron 4 MG/2 ML VIAL IVP ONE (19:41)
[2021-11-22] MEDS ORDERED: Ketorolac 30 MG/ML VIAL IVP ONE (19:41)
[2021-11-22] MEDS ORDERED: 0.9 % Sodium Chloride 1,000 ML IVC ONE (19:41)
[2021-11-22] MEDS ORDERED: Isovue-370 500 ML BOTTLE IVP ONE (19:42)
[2021-11-22 19:53] LABS: Basophils # 0.1 K/mcL (0.0-0.2); Basophils % 1.1 %; Eosinophils # 0.7 K/mcL (0.0-0.6); Eosinophils % 8.1 %; Hematocrit 44.5 % (37.5-50.1); Hemoglobin 15.3 g/dL (12.9-16.9); Immature Granulocytes % 0.5 % (0-4); Lymphocytes % 24.3 %; Mean Corpuscular HGB Conc 34.4 g/dL (31.6-35.5); Mean Corpuscular Hemoglobin 32.8 pg (28.0-33.3); Mean Corpuscular Volume 95.5 fL (83.0-100.0); Monocytes % 12.9 %; Neutrophils # 4.3 K/mcL (1.6-8.9); Platelet Count 269 K/mcL (140-400); Red Blood Count 4.66 M/mcL (4.19-5.50); Red Cell Distribution Width 14.3 % (11.5-14.5); Segmented Neutrophils % 53.1 %
[2021-11-22 20:05] LABS: INR 1.3; Prothrombin Time 14.3 Seconds (9.4-12.1)
[2021-11-22 20:15] LABS: Alanine Aminotransferase 375 Units/L (7-52); Albumin 3.2 g/dL (3.5-5.7); Albumin/Globulin Ratio 0.5 (1.1-2.2); Alkaline Phosphatase 152 Units/L (34-104); Amylase 136 Units/L (29-103); Aspartate Amino Transferase 388 Units/L (13-39); BUN/Creatinine Ratio 18 (6-26); Bilirubin,Direct 0.3 mg/dL (0.0-0.2); Bilirubin,Indirect 0.6 mg/dL (0.0-1.0); Bilirubin,Total 0.9 mg/dL (0.3-1.0); Blood Urea Nitrogen 13 mg/dL (8-23); Calcium 8.7 mg/dL (8.6-10.3); Carbon Dioxide 23 mEq/L (23-29); Chloride 102 mEq/L (98-107); Globulin 5.9 g/dL (2.4-3.5); Glucose 141 mg/dL (70-105); Lipase 225 Units/L (11-82); Osmolality,Calculated 272 (280-300); Sodium 130 mEq/L (136-145); Total Protein 9.1 g/dL (6.4-8.9); Troponin I < 0.03 ng/mL (< 0.04); eGFR For African Americans > 60 (> 60); eGFR For Non-African Americans > 60 (> 60)
[2021-11-22 20:25] LABS: Bacteria,Urine Few per hpf (None-Few); Bilirubin,Urine Negative (Negative); Blood,Urine Negative (Negative); Clarity,Urine Clear (Clear); Color,Urine Yellow (Yellow); Glucose,Urine (UA) Normal (Normal); Ketones,Urine Negative (Negative); Leukocyte Esterase,Urine Small (Negative); Mucus,Urine Few per lpf (None-Few); Nitrite,Urine Negative (Negative); Protein,Urine 50 mg/dL (Neg-Trace); Specific Gravity,Urine > 1.030 (1.010-1.025); Squamous Epithelial Cell,Urine Few per hpf (None-Few); WBC,Urine 15-30 per hpf (0-3)
[2021-11-22] MEDS ORDERED: cefTRIAXone 1,000 MG in 0.9 % Sodium Chloride 10 ML IVP ONE (20:58)
[2021-11-22] MEDS ORDERED: MetroNIDAZOLE 500 MG/100 ML 500 MG/100 ML BAG IVPB ONE (20:58)
[2021-11-22 21:56] LABS: Hepatitis B Surface Antigen Nonreactive (Nonreactive)
[2021-11-22] MEDS ORDERED: Melatonin 3 MG TABLET PO PRN (22:16)
[2021-11-22] MEDS ORDERED: Naloxone 0.4 MG/ML INJ IVP PRN (22:16)
[2021-11-22] MEDS ORDERED: Ondansetron ODT 4 MG TAB.RAPDIS SL PRN (22:16)
[2021-11-22 22:25] LABS: Hepatitis B Core IgM Nonreactive (Nonreactive)
[2021-11-22 22:26] LABS: Hepatitis A Antibody IgM Nonreactive (Nonreactive)
[2021-11-22] MEDS ORDERED: 0.9 % Sodium Chloride 1,000 ML IVC SCH ×2 (22:30→23:13)
[2021-11-22] MEDS ORDERED: Sennosides/Docusate Sodium TABLET PO PRN (23:42)
[2021-11-23 02:54] LABS: Basophils # 0.1 K/mcL (0.0-0.2); Eosinophils # 0.6 K/mcL (0.0-0.6); Hematocrit 41.7 % (37.5-50.1); Immature Granulocytes % 0.1 % (0-4); Lymphocytes # 2.2 K/mcL (0.6-4.6); Lymphocytes % 30.8 %; Mean Corpuscular HGB Conc 32.6 g/dL (31.6-35.5); Mean Corpuscular Hemoglobin 31.3 pg (28.0-33.3); Mean Corpuscular Volume 95.9 fL (83.0-100.0); Mean Platelet Volume 10.5 fL (9.4-12.4); Monocytes # 0.9 K/mcL (0.0-1.3); Monocytes % 12.6 %; Neutrophils # 3.3 K/mcL (1.6-8.9); Platelet Count 254 K/mcL (140-400); Red Blood Count 4.35 M/mcL (4.19-5.50); Red Cell Distribution Width 14.3 % (11.5-14.5); Segmented Neutrophils % 46.5 %
[2021-11-23 02:56] LABS: Hemoglobin 13.6 g/dL (12.9-16.9)
[2021-11-23 03:02] LABS: Alanine Aminotransferase 341 Units/L (7-52); Albumin 2.9 g/dL (3.5-5.7); Albumin/Globulin Ratio 0.5 (1.1-2.2); Alkaline Phosphatase 135 Units/L (34-104); Aspartate Amino Transferase 366 Units/L (13-39); BUN/Creatinine Ratio 17 (6-26); Bilirubin,Total 0.9 mg/dL (0.3-1.0); Blood Urea Nitrogen 12 mg/dL (8-23); Calcium 8.4 mg/dL (8.6-10.3); Carbon Dioxide 24 mEq/L (23-29); Chloride 105 mEq/L (98-107); Globulin 5.4 g/dL (2.4-3.5); Glucose 82 mg/dL (70-105); Osmolality,Calculated 275 (280-300); Phosphorous 2.8 mg/dL (2.7-4.5); Sodium 133 mEq/L (136-145); Total Protein 8.3 g/dL (6.4-8.9); eGFR For African Americans > 60 (> 60); eGFR For Non-African Americans > 60 (> 60)
[2021-11-23 03:54] LABS: Hepatitis C Virus Antibody Reactive (Nonreactive)
[2021-11-23] MEDS ORDERED: Morphine Sulfate 2 MG/ML SYRINGE IVP ONE (05:17)
[2021-11-23] MEDS ORDERED: D5% in Water 1,000 ML IVC PRN (05:22)
[2021-11-23] MEDS ORDERED: *HR* Dextrose 50 % in Water (Syg) 50 ML SYRINGE IVP PRN (05:22)
[2021-11-23] MEDS: Morphine Sulfate 2 MG/ML SYRINGE IVP PRN ×2 (08:59→20:38)
[2021-11-23] MEDS: Tiotropium 10 INH DOSE IH SCH (10:23)
[2021-11-23 11:19] LABS: Acetaminophen < 10 mcg/mL (10-20); Salicylate < 2.5 mg/dL (15.0-30.0)
[2021-11-23 11:27] LABS: % Iron Saturation 50 % (20-55); Iron 146 mcg/dL (65-175); Transferrin 208 mg/dL (203-362)
[2021-11-23 11:40] LABS: Ferritin 293 ng/mL (20-250)
[2021-11-23] MEDS: 0.9 % Sodium Chloride 1,000 ML IVC SCH (11:50)
[2021-11-23] MEDS: carvediloL 6.25 MG TABLET PO SCH (16:37)
[2021-11-24] MEDS: 0.9 % Sodium Chloride 1,000 ML IVC SCH (03:59)
[2021-11-24] MEDS: Morphine Sulfate 2 MG/ML SYRINGE IVP PRN (03:59)
[2021-11-24 06:30] LABS: Basophils # 0.1 K/mcL (0.0-0.2); Eosinophils # 0.7 K/mcL (0.0-0.6); Eosinophils % 8.4 %; Hematocrit 45.8 % (37.5-50.1); Immature Granulocytes % 0.2 % (0-4); Lymphocytes # 1.9 K/mcL (0.6-4.6); Lymphocytes % 21.9 %; Mean Corpuscular HGB Conc 33.4 g/dL (31.6-35.5); Mean Corpuscular Hemoglobin 31.8 pg (28.0-33.3); Mean Corpuscular Volume 95.2 fL (83.0-100.0); Mean Platelet Volume 10.1 fL (9.4-12.4); Monocytes # 1.1 K/mcL (0.0-1.3); Monocytes % 13.2 %; Neutrophils # 4.8 K/mcL (1.6-8.9); Platelet Count 302 K/mcL (140-400); Red Blood Count 4.81 M/mcL (4.19-5.50); Red Cell Distribution Width 14.2 % (11.5-14.5); Segmented Neutrophils % 55.3 %; White Blood Count 8.7 K/mcL (4.3-11.1)
[2021-11-24 06:31] LABS: Hemoglobin 15.3 g/dL (12.9-16.9)
[2021-11-24 06:52] LABS: Alanine Aminotransferase 358 Units/L (7-52); Albumin 3.3 g/dL (3.5-5.7); Albumin/Globulin Ratio 0.6 (1.1-2.2); Alkaline Phosphatase 134 Units/L (34-104); Aspartate Amino Transferase 370 Units/L (13-39); BUN/Creatinine Ratio 18 (6-26); Bilirubin,Direct 0.8 mg/dL (0.0-0.2); Bilirubin,Indirect 0.7 mg/dL (0.0-1.0); Bilirubin,Total 1.5 mg/dL (0.3-1.0); Blood Urea Nitrogen 10 mg/dL (8-23); Calcium 8.8 mg/dL (8.6-10.3); Carbon Dioxide 20 mEq/L (23-29); Chloride 102 mEq/L (98-107); Globulin 5.7 g/dL (2.4-3.5); Glucose 88 mg/dL (70-105); Osmolality,Calculated 268 (280-300); Potassium 3.9 mEq/L (3.5-5.1); Sodium 130 mEq/L (136-145); eGFR For African Americans > 60 (> 60); eGFR For Non-African Americans > 60 (> 60)
[2021-11-24] MEDS: lisinopriL 5 MG TABLET PO SCH (07:56)
[2021-11-24] MEDS: carvediloL 6.25 MG TABLET PO SCH ×2 (07:56→16:20)
[2021-11-24] MEDS: Tiotropium 10 INH DOSE IH SCH (11:18)
[2021-11-24] MEDS ORDERED: Ibuprofen 600 MG TABLET PO ONE (22:56)
[2021-11-25 02:01] LABS: Basophils # 0.1 K/mcL (0.0-0.2); Basophils % 0.8 %; Eosinophils # 0.3 K/mcL (0.0-0.6); Eosinophils % 3.1 %; Hematocrit 49.9 % (37.5-50.1); Immature Granulocytes % 0.3 % (0-4); Lymphocytes # 2.6 K/mcL (0.6-4.6); Lymphocytes % 24.2 %; Mean Corpuscular HGB Conc 34.1 g/dL (31.6-35.5); Mean Corpuscular Hemoglobin 32.1 pg (28.0-33.3); Mean Corpuscular Volume 94.2 fL (83.0-100.0); Mean Platelet Volume 9.6 fL (9.4-12.4); Monocytes # 1.3 K/mcL (0.0-1.3); Monocytes % 12.3 %; Neutrophils # 6.4 K/mcL (1.6-8.9); Platelet Count 330 K/mcL (140-400); Red Cell Distribution Width 14.3 % (11.5-14.5); Segmented Neutrophils % 59.3 %; White Blood Count 10.8 K/mcL (4.3-11.1)
[2021-11-25 02:24] LABS: Alanine Aminotransferase 298 Units/L (7-52); Albumin 3.1 g/dL (3.5-5.7); Albumin/Globulin Ratio 0.5 (1.1-2.2); Alkaline Phosphatase 121 Units/L (34-104); Aspartate Amino Transferase 267 Units/L (13-39); BUN/Creatinine Ratio 24 (6-26); Bilirubin,Direct 0.7 mg/dL (0.0-0.2); Bilirubin,Indirect 1.2 mg/dL (0.0-1.0); Bilirubin,Total 1.9 mg/dL (0.3-1.0); Blood Urea Nitrogen 17 mg/dL (8-23); Carbon Dioxide 20 mEq/L (23-29); Chloride 104 mEq/L (98-107); Glucose 104 mg/dL (70-105); Osmolality,Calculated 274 (280-300); Potassium 3.6 mEq/L (3.5-5.1); Sodium 131 mEq/L (136-145); Total Protein 9.1 g/dL (6.4-8.9); eGFR For African Americans > 60 (> 60); eGFR For Non-African Americans > 60 (> 60)
[2021-11-25] MEDS: Tiotropium 10 INH DOSE IH SCH (07:52)
[2021-11-25] MEDS: carvediloL 6.25 MG TABLET PO SCH ×2 (08:56→16:16)
[2021-11-25] MEDS: hydrOXYzine pamoate 25 MG CAPSULE PO PRN (08:56)
[2021-11-25] MEDS: lisinopriL 5 MG TABLET PO SCH (08:56)
[2021-11-25 11:00] LABS: ANA IgG by ELISA DETECTED (None Detected); HCV Quant Interpretation DETECTED (Not Detected); HCV Quant Log 5.54 log IU/mL
[2021-11-25] MEDS: Apixaban 5 MG TABLET PO SCH (21:10)
[2021-11-26 06:51] LABS: Basophils # 0.1 K/mcL (0.0-0.2); Basophils % 0.7 %; Eosinophils # 0.3 K/mcL (0.0-0.6); Eosinophils % 1.8 %; Hematocrit 48.7 % (37.5-50.1); Hemoglobin 16.7 g/dL (12.9-16.9); Immature Granulocytes % 0.6 % (0-4); Lymphocytes # 3.5 K/mcL (0.6-4.6); Lymphocytes % 22.7 %; Mean Corpuscular HGB Conc 34.3 g/dL (31.6-35.5); Mean Corpuscular Hemoglobin 32.2 pg (28.0-33.3); Mean Corpuscular Volume 93.8 fL (83.0-100.0); Mean Platelet Volume 9.9 fL (9.4-12.4); Monocytes # 1.6 K/mcL (0.0-1.3); Monocytes % 10.7 %; Neutrophils # 9.7 K/mcL (1.6-8.9); Platelet Count 372 K/mcL (140-400); Red Blood Count 5.19 M/mcL (4.19-5.50); Red Cell Distribution Width 14.5 % (11.5-14.5); Segmented Neutrophils % 63.5 %; White Blood Count 15.3 K/mcL (4.3-11.1)
[2021-11-26] MEDS: Tiotropium 10 INH DOSE IH SCH (08:03)
[2021-11-26] MEDS: lisinopriL 5 MG TABLET PO SCH (08:36)
[2021-11-26] MEDS: Apixaban 5 MG TABLET PO SCH ×2 (08:36→21:06)
[2021-11-26] MEDS: carvediloL 6.25 MG TABLET PO SCH ×2 (08:36→17:44)
[2021-11-26] MEDS: hydrOXYzine pamoate 25 MG CAPSULE PO PRN (08:48)
[2021-11-26 11:48] LABS: Albumin 2.9 g/dL (3.5-5.7); Albumin/Globulin Ratio 0.5 (1.1-2.2); Bilirubin,Direct 0.5 mg/dL (0.0-0.2); Bilirubin,Indirect 1.1 mg/dL (0.0-1.0); Bilirubin,Total 1.6 mg/dL (0.3-1.0); Calcium 8.8 mg/dL (8.6-10.3); Globulin 5.9 g/dL (2.4-3.5); Total Protein 8.8 g/dL (6.4-8.9)
[2021-11-26] MEDS ORDERED: 0.9 % Sodium Chloride 1,000 ML IVC SCH ×2 (12:00→17:30)
[2021-11-26 17:51] LABS: ANA HEp-2 IgG IFA DETECTED (<1:80); Anti Nuclear Ab Pattern HOMOGENEOUS; Cytoplasmic Pattern Titer >1:2560
[2021-11-26 18:03] VITALS: O2SAT 92
[2021-11-26] MEDS ORDERED: 0.9 % Sodium Chloride 1,000 ML IVC ONE (18:04)
[2021-11-26 18:50] VITALS: TEMP 97.6
[2021-11-26 19:49] VITALS: BP 88/55; PULSE 64
[2021-11-26] MEDS ORDERED: Albumin 25% 25gram/100mL 25 GM/100 ML IV.SOLN IVPB ONE (20:00)
[2021-11-27 09:43] LABS: Cytoplasmic Pattern AMA
== END 2021-11-26 21:00 | disposition left against medical advice (07) | DRG 282 ==
LOC: 3ANU 18:14 → EMEROOARM 18:14 → SUATTDRO 21:32 → 3ANU 22:20
PROVIDERS: ADMIT Internal Medicine; ATTEND Family Medicine